=== PATIENT | male | born 1990 | race African-American/Black ===

== ENCOUNTER 2019-12-24 16:33 | Emergency (ER) | payer SELFPAY ==
[2019-12-24 16:37] VITALS: BP 144/80; PULSE 80; RESP 20; TEMP 37.3; O2SAT 100
--- NOTE | 2019-12-24 16:44 | ED.GENADULT ---
HPI - General Adult General Chief complaint: Extremity Injury, Upper Stated complaint: L 4th finger injury, from Time Seen by Provider: 12/24/19 16:39 Source: patient Mode of arrival: ambulatory Limitations: no limitations History of Present Illness HPI narrative: Patient was sent to us from an urgent care for further evaluation of trauma to his left fingers, numbers 3 4 and 5. There is bleeding from finger 4. He has full range of motion and feeling. He came with a disc of x-rays from the referring facility. Will have radiology look at those x-rays. Related Data Allergies Allergy/AdvReac Type Severity Reaction Status Date / Time No Known Allergies Allergy Verified 12/24/19 17:22 Review of Systems Review of Systems: All systems reviewed & are unremarkable except as noted in HPI and below Exam Const: General: no acute distress and alert Orientation/consciousness: patient oriented x3 Eyes: Pupils: Equal, round and reactive pupils present Resp: Effort & Inspection: normal respiratory effort Cardio: Rate: regular rate Rhythm: regular rhythm Skin: General skin exam: normal color Wounds: wounds noted laceration left 4th finger Neuro: General: normal sensation to monofilament Extrem: Hand/finger images: 1. superficial laceration around nail bed, subungual hematoma distal nail bed. Psych: Mental Status: mental status grossly normal Course Course Emergency Course: X-ray disc was reviewed by Dr. Schumacher, he agrees with read of non-displaced tuft fracture of fourth digit on left hand. Radiology will have xrays loaded into chart. Vital Signs Vital signs: Vital Signs Temperature 37.3 C 12/24/19 16:37 Pulse Rate 80 12/24/19 16:37 Respiratory Rate 12/24/19 16:37 Blood Pressure 144/80 H 12/24/19 16:37 Pulse Oximetry 100 12/24/19 16:37 Temperature 37.3 C 12/24/19 16:37 Pulse Rate 80 12/24/19 16:37 Respiratory Rate 12/24/19 16:37 Blood Pressure 144/80 H 12/24/19 16:37 Pulse Oximetry 100 12/24/19 16:37 Procedures Laceration Laceration 1: Date: 12/24/19 Time: 18:00 Site: hand (4th finger tip) Side (If applicable): left Size (cm): 2 Description: linear Depth: simple, single layer Local Anesthetic: lidocaine 1% Amount of anesthesia used (mL): 4 Pre-repair: irrigated extensively ====== Skin Level ====== Skin layer closed with: nylon and vicryl Size (cm): 4-0 Number of sutures: 4 Technique: simple, interrupted ====== Subcutaneous Layer ====== ====== Muscle Layer ====== ====== Tendon Layer ====== Medical Decision Making Vital Signs Vital Signs: Vital Signs Temperature 37.3 C 12/24/19 16:37 Pulse Rate 80 12/24/19 16:37 Respiratory Rate 12/24/19 16:37 Blood Pressure 144/80 H 12/24/19 16:37 Pulse Oximetry 100 12/24/19 16:37 Temperature 37.3 C 12/24/19 16:37 Pulse Rate 80 12/24/19 16:37 Respiratory Rate 12/24/19 16:37 Blood Pressure 144/80 H 12/24/19 16:37 Pulse Oximetry 100 12/24/19 16:37 Discharge Plan Discharge Clinical Impression: Crush accident, Closed fracture of tuft of distal phalanx of finger, Laceration Patient Disposition: Home, Self-Care Condition: Stable Instructions: Antibiotic Form, Care For Your Stitches (ED), Laceration (ED) Additional Instructions: Keep the finger covered with your protective splint when working. Sutures can be removed in 5 days. Do not soak your hand in water tonight. Follow-up with your primary care physician or the Workmen's Comp. physician for suture removal and possible referral to orthopedic surgery. Prescriptions: New cephalexin [Keflex] 500 mg capsule 500 mg PO Q12H Qty: 10 RF: 0 tramadol 50 mg tablet 50 mg PO Q6H PRN (Reason: pain) Qty: 10 RF: 0 Follow-up/Referrals: UNKNOWN,DOCTOR [Primary Care Provider] - Stand Alone Forms:
[2019-12-24] MEDS: ACETAMINOPHEN 500 MG TABLET 1000 MG PO (17:28)
[2019-12-24] MEDS: TETANUS,DIPHTHERIA,AC PERTUSSIS ADULT (0.5 ML) BOOSTRIX IM (18:19)
== END 2019-12-24 18:58 | disposition home or self-care (01) ==
PROVIDERS: Emergency Provider Emergency Medicine
DX: S62.665A Nondisplaced fracture of distal phalanx of left ring finger, initial encounter for closed fracture (principal); S61.315A Laceration without foreign body of left ring finger with damage to nail, initial encounter; Z23 Encounter for immunization; W23.0XXA Caught, crushed, jammed, or pinched between moving objects, initial encounter
CPT/HCPCS: 12001; 90471; 90715; 99283; A9270